=== PATIENT | female | born 1945 | race Caucasian/White ===

== ENCOUNTER 2018-08-17 12:24 | Inpatient (IN) | payer MEDICARE ==
[2018-08-17 13:24] LABS: Glucose,Whole Blood 342 mg/dL (75-99)
[2018-08-17] MEDS ORDERED: SODIUM CHLORIDE 0.9% 1,000 ML IV STA (13:38)
--- NOTE | 2018-08-17 13:42 | ED ---
General Adult HPI - General Chief complaint: Recheck/Abnormal Lab/Rx Stated complaint: high blood sugar Time Seen by Provider: 08/17/18 13:02 Source: patient, RN notes reviewed Mode of arrival: ambulatory Limitations: physical limitation - History of Present Illness Initial comments: Patient is a pleasant 72-year-old female presenting to the emergency Department with complaints of hyperglycemia. Patient does try to minimize her symptoms. Family is present who helps provide history. With this patient is agreeable that she has felt generally weak and fatigued. Patient is also agreeable that she has had increased thirst and increased urination. Unclear how long symptoms have been going on for however has been released several days. No chest pain or dyspnea. No confusion. No isolated area of weakness. - Related Data Home Medications Medication Instructions Recorded Confirmed Aspirin [[place] Aspirin EC] 81 mg PO DAILY 08/17/18 08/17/18 Atorvastatin [Lipitor] 40 mg PO DAILY 08/17/18 08/17/18 Donepezil [Aricept] 10 mg PO BID 08/17/18 08/17/18 Insulin Aspart [NovoLOG 10 unit SQ QID 08/17/18 08/17/18 (formulary)] Insulin Glargine,Hum.rec.anlog 20 unit SQ DAILY@1730 08/17/18 08/17/18 [Basaglar Kwikpen U-100] Losartan [Cozaar] 25 mg PO DAILY 08/17/18 08/17/18 Metoprolol Tartrate [Lopressor] 12.5 mg PO DAILY 08/17/18 08/17/18 Ticagrelor [Brilinta] 90 mg PO BID 08/17/18 08/17/18 Allergies Allergy/AdvReac Type Severity Reaction Status Date / Time No Known Allergies Allergy Verified 08/17/18 12:54 Review of Systems ROS Statement: Those systems with pertinent positive or pertinent negative responses have been documented in the HPI. ROS Other: All systems not noted in ROS Statement are negative. Constitutional: Denies: fever Eyes: Denies: eye pain ENT: Denies: ear pain Respiratory: Denies: cough, dyspnea Cardiovascular: Denies: chest pain Endocrine: Reports: fatigue, polydipsia, polyuria Gastrointestinal: Denies: abdominal pain, nausea, vomiting Genitourinary: Reports: frequency. Denies: dysuria Musculoskeletal: Denies: back pain Skin: Denies: rash Neurological: Reports: as per HPI. Denies: headache Past Medical History Past Medical History: Coronary Artery Disease (CAD), Diabetes Mellitus, Myocardial Infarction (NH) History of Any Multi-Drug Resistant Organisms: None Reported Past Surgical History: Heart Catheterization With Stent Past Psychological History: No Psychological Hx Reported Smoking Status: Never smoker Past Alcohol Use History: None Reported Past Drug Use History: None Reported General Exam Limitations: physical limitation General appearance: alert, in no apparent distress Head exam: Present: atraumatic Eye exam: Present: normal appearance, PERRL ENT exam: Present: normal oropharynx Neck exam: Present: normal inspection Respiratory exam: Present: normal lung sounds bilaterally Cardiovascular Exam: Present: regular rate, normal rhythm GI/Abdominal exam: Present: soft. Absent: tenderness Extremities exam: Present: normal inspection Neurological exam: Present: alert, CN II-XII intact. Absent: motor sensory deficit Psychiatric exam: Present: normal affect, normal mood Skin exam: Present: normal color Course Vital Signs 08/17/18 08/17/18 12:48 15:35 Temperature 98.1 F Pulse Rate 68 64 Respiratory 18 18 Rate Blood Pressure 112/56 123/45 O2 Sat by Pulse 99 97 Oximetry EKG Findings - EKG Comments: EKG Findings:: Sinus bradycardia 58. VA 180. QRS 90. QT 422. QTC 414. Left axis. LVH. Repolarization changes. No previous EKGs available. Medical Decision Making - Medical Decision Making Patient reevaluated and resting comfortably in bed. Patient and family updated on results and plan. Patient's primary care physician reportedly works with Dr. Baez. Dr. Mcmahon has been paged for admission. - Lab Data Result diagrams: 08/17/18 13:44 08/17/18 13:44 Lab Results 08/17/18 08/17/18 08/17/18 Range/Units 13:21 13:44 13:44 WBC (3.8-10.6) k/uL RBC (3.80-5.40) m/uL Hgb (11.4-16.0) gm/dL Hct (34.0-46.0) % MCV (80.0-100.0) fL MCH (25.0-35.0) pg MCHC (31.0-37.0) g/dL RDW (11.5-15.5) % Plt Count (150-450) k/uL Neutrophils % % Lymphocytes % % Monocytes % % Eosinophils % % Basophils % % Neutrophils # (1.3-7.7) k/uL Lymphocytes # (1.0-4.8) k/uL Monocytes # (0-1.0) k/uL Eosinophils # (0-0.7) k/uL Basophils # (0-0.2) k/uL Sodium 133 L (137-145) mmol/L Potassium 5.4 H (3.5-5.1) mmol/L Chloride 92 L (98-107) mmol/L Carbon Dioxide 21 L (22-30) mmol/L Anion Gap 20 mmol/L BUN 25 H (7-17) mg/dL Creatinine 0.88 (0.52-1.04) mg/dL Est GFR (CKD-EPI)AfAm 76 (>60 ml/min/1.73 sqM) Est GFR (CKD-EPI)NonAf 66 (>60 ml/min/1.73 sqM) Glucose 400 H (74-99) mg/dL POC Glucose (mg/dL) 342 H (75-99) mg/dL POC Glu Human Performance Professor ID Grady Shepard Calcium 9.6 (8.4-10.2) mg/dL Phosphorus 4.6 H (2.5-4.5) mg/dL Magnesium 2.0 (1.6-2.3) mg/dL Total Bilirubin 1.0 (0.2-1.3) mg/dL AST 32 (14-36) U/L ALT 44 (9-52) U/L Alkaline Phosphatase 85 (38-126) U/L Total Creatine Kinase 188 H (30-135) U/L CK-MB (CK-2) 3.0 H (0.0-2.4) ng/mL CK-MB (CK-2) Rel Index 1.6 Troponin I 0.013 (0.000-0.034) ng/mL Total Protein 7.5 (6.3-8.2) g/dL Albumin 4.5 (3.5-5.0) g/dL Urine Color Urine Appearance (Clear) Urine pH (5.0-8.0) Ur Specific [place] (1.001-1.035) Urine Protein (Negative) Urine Glucose (UA) (Negative) Urine Ketones (Negative) Urine Blood (Negative) Urine Nitrite (Negative) Urine Bilirubin (Negative) Urine Urobilinogen (<2.0) mg/dL Ur Leukocyte Esterase (Negative) Acetone, Qual Positive (Negative) 08/17/18 08/17/18 Range/Units 13:44 14:08 WBC 7.9 (3.8-10.6) k/uL RBC 4.53 (3.80-5.40) m/uL Hgb 13.5 (11.4-16.0) gm/dL Hct 42.0 (34.0-46.0) % MCV 92.6 (80.0-100.0) fL MCH 29.8 (25.0-35.0) pg MCHC 32.2 (31.0-37.0) g/dL RDW 13.6 (11.5-15.5) % Plt Count 222 (150-450) k/uL Neutrophils % 79 % Lymphocytes % 14 % Monocytes % 5 % Eosinophils % 0 % Basophils % 0 % Neutrophils # 6.2 (1.3-7.7) k/uL Lymphocytes # 1.1 (1.0-4.8) k/uL Monocytes # 0.4 (0-1.0) k/uL Eosinophils # 0.0 (0-0.7) k/uL Basophils # 0.0 (0-0.2) k/uL Sodium (137-145) mmol/L Potassium (3.5-5.1) mmol/L Chloride (98-107) mmol/L Carbon Dioxide (22-30) mmol/L Anion Gap mmol/L BUN (7-17) mg/dL Creatinine (0.52-1.04) mg/dL Est GFR (CKD-EPI)AfAm (>60 ml/min/1.73 sqM) Est GFR (CKD-EPI)NonAf (>60 ml/min/1.73 sqM) Glucose (74-99) mg/dL POC Glucose (mg/dL) (75-99) mg/dL POC Glu Human Performance Professor ID Calcium (8.4-10.2) mg/dL Phosphorus (2.5-4.5) mg/dL Magnesium (1.6-2.3) mg/dL Total Bilirubin (0.2-1.3) mg/dL AST (14-36) U/L ALT (9-52) U/L Alkaline Phosphatase (38-126) U/L Total Creatine Kinase (30-135) U/L CK-MB (CK-2) (0.0-2.4) ng/mL CK-MB (CK-2) Rel Index Troponin I (0.000-0.034) ng/mL Total Protein (6.3-8.2) g/dL Albumin (3.5-5.0) g/dL Urine Color Light Yellow Urine Appearance Clear (Clear) Urine pH 5.0 (5.0-8.0) Ur Specific [place] 1.026 (1.001-1.035) Urine Protein Negative (Negative) Urine Glucose (UA) 4+ H (Negative) Urine Ketones 4+ H (Negative) Urine Blood Negative (Negative) Urine Nitrite Negative (Negative) Urine Bilirubin Negative (Negative) Urine Urobilinogen <2.0 (<2.0) mg/dL Ur Leukocyte Esterase Negative (Negative) Acetone, Qual (Negative) - Radiology Data Radiology results: image reviewed (Chest x-ray shows chronic changes without acute abnormality.) Critical Care Time Critical Care Time: Yes Total Critical Care Time: 33 Disposition Clinical Impression: DKA (diabetic ketoacidoses) Disposition: ADMITTED IP TO THIS [facility] Condition: Serious Is patient prescribed a controlled substance at d/c from ED?: No Referrals: Amari Uriarte DO [Primary Care Provider] - 1-2 days Decision Time: 16:00
[2018-08-17 14:05] LABS: Basophils % (A) 0 %; Eosinophils % (A) 0 %; HGB 13.5 gm/dL (11.4-16.0); Lymphocytes # (A) 1.1 k/uL (1.0-4.8); Lymphocytes % (A) 14 %; MCH 29.8 pg (25.0-35.0); MCHC 32.2 g/dL (31.0-37.0); MCV 92.6 fL (80.0-100.0); Mean Platelet Volume 7.7; Monocytes # (A) 0.4 k/uL (0-1.0); Monocytes % (A) 5 %; Neutrophils # (A) 6.2 k/uL (1.3-7.7); Neutrophils % (A) 79 %; Platelet Count 222 k/uL (150-450); RBC 4.53 m/uL (3.80-5.40); RDW 13.6 % (11.5-15.5); WBC 7.9 k/uL (3.8-10.6)
[2018-08-17 14:17] LABS: ALT 44 U/L (9-52); AST 32 U/L (14-36); Albumin 4.5 g/dL (3.5-5.0); Alkaline Phosphatase 85 U/L (38-126); Anion Gap 20 mmol/L; Blood Urea Nitrogen 25 mg/dL (7-17); Calcium 9.6 mg/dL (8.4-10.2); Carbon Dioxide 21 mmol/L (22-30); Chloride 92 mmol/L (98-107); Glucose 400 mg/dL (74-99); Phosphorus 4.6 mg/dL (2.5-4.5); Potassium 5.4 mmol/L (3.5-5.1); Sodium 133 mmol/L (137-145); Total Protein 7.5 g/dL (6.3-8.2)
--- NOTE | 2018-08-17 14:26 | XR ---
EXAMINATION TYPE: XR chest 2V DATE OF EXAM: 08/17/2018 COMPARISON: NONE HISTORY: Weakness. TECHNIQUE: Frontal and lateral views of the chest are obtained. FINDINGS: There is chronic emphysematous change without suspicious focal air space opacity, pleural effusion, or pneumothorax seen. The cardiac silhouette size is within normal limits. Some multilevel spurring in the thoracic spine is present.. IMPRESSION: Chronic emphysematous change without acute pulmonary process.
[2018-08-17 14:28] LABS: Appearance,Urine Clear (Clear); Bilirubin,Urine Negative (Negative); Blood,Urine Negative (Negative); Color,Urine Light Yellow; Glucose,Urine (UA) 4+ (Negative); Leukocyte Esterase,Urine Negative (Negative); Nitrite,Urine Negative (Negative); Protein,Urine Negative (Negative); Specific Gravity,Urine 1.026 (1.001-1.035); Urobilinogen,Urine <2.0 mg/dL (<2.0)
[2018-08-17 14:38] LABS: Troponin I 0.013 ng/mL (0.000-0.034)
[2018-08-17 14:56] LABS: Ketones,Urine 4+ (Negative)
[2018-08-17] MEDS ORDERED: INSULIN REGULAR BOLUS (FROM DRIP BAG) IV ONE (16:00)
[2018-08-17 16:29] LABS: Glucose,Whole Blood 273 mg/dL (75-99)
[2018-08-17] MEDS ORDERED: INSULIN REGULAR 100 UNIT in SODIUM CHLORIDE 0.9% 100 ML IV SCH (16:30)
[2018-08-17] MEDS: SODIUM CHLORIDE 0.9% 1,000 ML IV SCH ×2 (18:01→21:54)
[2018-08-17 18:41] LABS: Glucose,Whole Blood 252 mg/dL (75-99)
[2018-08-17 19:50] LABS: Phosphorus 3.1 mg/dL (2.5-4.5); Potassium 4.5 mmol/L (3.5-5.1)
[2018-08-17] MEDS ORDERED: D5-0.45% NACL WITH KCL 20MEQ/L 1,000 ML IV SCH (20:00)
[2018-08-17 20:01] LABS: Glucose,Whole Blood 248 mg/dL (75-99)
[2018-08-17 21:02] LABS: Glucose,Whole Blood 244 mg/dL (75-99)
[2018-08-17] MEDS ORDERED: INSULIN DETEMIR 100 UNIT/ML 10 ML VIAL SQ SCH (21:31)
[2018-08-17] MEDS: TICAGRELOR 90 MG TAB PO SCH (21:52)
[2018-08-17] MEDS: ENOXAPARIN 40 MG/0.4 ML SYRINGE SQ SCH (21:52)
[2018-08-17] MEDS: DONEPEZIL 10 MG TAB PO SCH (21:52)
--- NOTE | 2018-08-17 22:04 | HP ---
HISTORY AND PHYSICAL DATE OF ADMISSION: 08/17/2018 DATE OF SERVICE: 08/17/2018 PRESENTING COMPLAINT: Weak and tired. HISTORY OF PRESENTING COMPLAINT: This is a very pleasant 72-year-old patient of Dr. Amari Uriarte. Patient's chronic stable medical conditions include coronary artery disease, Alzheimer's dementia. The patient was brought in by her daughter, as patient has been feeling weak, tired, somewhat more confused than usual, and sugars were found to be really high, up in 300s. Patient was found to have an elevated anion gap, positive for serum acetone; admitted for diabetic ketoacidosis. Patient was put on IV fluids, IV insulin drip, admitted for the same. The patient denies any respiratory symptoms. No cough, no shortness of breath, no urinary symptoms. No other evidence of infection. Patient admitted for the same. No chest pain. No shortness of breath. REVIEW OF SYSTEMS: CONSTITUTIONAL: Tired. HEENT: None. RESPIRATORY: None. CARDIOVASCULAR: None. GASTROINTESTINAL: None. GENITOURINARY: None. MUSCULOSKELETAL: None. DERMATOLOGICAL: None. HEMATOLOGICAL: None. LYMPHATICS: None. PSYCHIATRY: Forgetful. NEUROLOGICAL: None. PAST MEDICAL HISTORY: 1. Coronary artery disease with stent. 2. Diabetes. 3. Dementia. PAST SURGICAL HISTORY: Cardiac cath with stent. SOCIAL HISTORY: Does not smoke or drink alcohol. Lives by herself. Daughter helps her out. FAMILY HISTORY: Diabetes. HOME MEDICATIONS: 1. Aricept 10 mg b.i.d. 2. NovoLog 10 units subcutaneously q.i.d. 3. Insulin Basaglar 20 units subcutaneously daily. 4. Lipitor 40 mg p.o. daily. 5. Brilinta 90 mg p.o. b.i.d. 6. Lopressor 12.5 p.o. daily. 7. Cozaar 25 mg p.o. daily. 8. Aspirin 81 mg p.o. daily. ALLERGIES: NONE. PHYSICAL EXAMINATION: VITAL SIGNS ON PRESENTATION: Temperature 98.1, pulse 68, respiration 18, blood pressure 112/56, pulse ox 99% on room air. GENERAL APPEARANCE: Thin build. Sitting up, comfortable. EYES: Pupils equal. Conjunctivae normal. HEENT: External appearance of nose and ears normal. Oral cavity normal. NECK: JVD not raised. Mass not palpable. RESPIRATORY: Effort normal. LUNGS: Fair air entry. CARDIOVASCULAR: First and second sounds normal. No edema. ABDOMEN: Soft, non-tender. Liver and spleen not palpable. LYMPHATIC: No lymph node palpable in neck or axillae. PSYCHIATRY: Patient is able to answer simple questions. Forgetful about others. NEUROLOGICAL: Pupils equal. Cranial nerves grossly intact. Power and sensation grossly intact. INVESTIGATIONS: White count 7.9, hemoglobin 13.5, potassium 5.4, BUN 25, creatinine 0.88. Anion gap is 20. Blood glucose was 400. Urine was positive for ketone 4+ and glucose 4+. Serum acetone was positive. EKG tracing, personally reviewed by me, shows normal sinus rhythm. Chest x-ray film, personally reviewed by me, shows no obvious infiltrates. ASSESSMENT: 1. Acute diabetic ketoacidosis. No evidence of infection. 2. Acute delirium from acute diabetic ketoacidosis. 3. Moderate cognitive impairment, probably from Alzheimer's dementia. 4. Coronary artery disease with prior history of stent. 5. Hyperkalemia from acute ketoacidosis. PLAN: Patient was put on diabetic ketoacidosis protocol, including insulin and IV fluids, treated for the same. Lovenox for DVT prophylaxis. Care was discussed with the patient. No family is currently present. No evidence of infection. Follow electrolytes closely. MMODL / IJN: [id number] /
[2018-08-17 22:32] LABS: Glucose,Whole Blood 288 mg/dL (75-99)
[2018-08-17] MEDS: INSULIN ASPART 100 UNIT/ML 1 ML 10 ML VIAL SQ SCH (22:39)
[2018-08-18 00:42] LABS: Anion Gap 7 mmol/L; Blood Urea Nitrogen 23 mg/dL (7-17); Carbon Dioxide 25 mmol/L (22-30); Chloride 102 mmol/L (98-107); Glucose 293 mg/dL (74-99); Potassium 4.6 mmol/L (3.5-5.1); Sodium 134 mmol/L (137-145)
[2018-08-18 04:11] LABS: Hemoglobin A1C 13.4 % (4.0-6.0)
[2018-08-18 05:53] LABS: Glucose,Whole Blood 172 mg/dL (75-99)
[2018-08-18] MEDS: ENOXAPARIN 40 MG/0.4 ML SYRINGE SQ SCH (07:50)
[2018-08-18] MEDS: DONEPEZIL 10 MG TAB PO SCH (07:51)
[2018-08-18] MEDS: INSULIN ASPART 100 UNIT/ML 1 ML 10 ML VIAL SQ SCH ×5 (07:51→12:38)
[2018-08-18] MEDS: TICAGRELOR 90 MG TAB PO SCH (07:52)
[2018-08-18 08:14] VITALS: RESP 20
[2018-08-18] MEDS ORDERED: ATORVASTATIN 40 MG TAB PO SCH (09:00)
[2018-08-18] MEDS ORDERED: ASPIRIN 81 MG PO SCH (09:00)
[2018-08-18] MEDS ORDERED: METOPROLOL TARTRATE 12.5 MG TAB PO SCH (09:00)
[2018-08-18] MEDS ORDERED: LOSARTAN 25 MG TAB PO SCH (09:00)
[2018-08-18 11:25] LABS: Glucose,Whole Blood 143 mg/dL (75-99)
[2018-08-18 12:48] VITALS: BP 132/68; PULSE 71; TEMP 97.7
[2018-08-18 15:57] VITALS: BMI 19.3
[2018-08-18] MEDS ORDERED: INSULIN DETEMIR 100 UNIT/ML 10 ML VIAL SQ SCH (17:30)
--- NOTE | 2018-08-23 10:58 | DS ---
DISCHARGE SUMMARY DATE OF ADMISSION: 08/17/2018 DATE OF DISCHARGE: 08/18/2018 FINAL DIAGNOSES: 1. Acute diabetic ketoacidosis. No evidence of infection. 2. Acute delirium from acute diabetic ketoacidosis. 3. Moderate cognitive impairment probably from Alzheimer's dementia. 4. Coronary artery disease, prior history of stent. 5. Hyperkalemia from acute ketoacidosis. HOSPITAL COURSE: This patient presented with acute delirium from diabetic ketoacidosis. Also discovered to have significant cognitive impairment. Responded well to insulin drip. Sugars are doing much better at the time of discharge. The day of discharge discussion was held with the patient, her daughter and a friend. Patient will be definitely somewhat better with more supervision and there was some social haggling that was going on between whether she is going to be independent versus if somebody is going to move in and help her out. I did help to mediate the talk between the family with understanding to the patient that she definitely needs help and supervision and needs to be supervised closely. The friend, patient, and daughter are going to sort this out. Discussion and discharge planning more than 35 minutes. PHYSICAL EXAMINATION: Temperature 97.7, pulse 71, respiratory 20, blood pressure 132/68, pulse ox 98% on room air. LUNGS: Fair entry. CARDIOVASCULAR: First and second sounds are normal. Patient is able answer simple questions. INVESTIGATION: BUN 23, creatinine 0.75. DISCHARGE MEDICATIONS: 1. Aspirin 81 mg a day. 2. Lipitor 40 mg a day. 3. Aricept 10 mg b.i.d. 4. NovoLog 10 units subcu q.i.d. 5. Insulin Lantus 20 units subcu daily at 5:30 pm. 6. Cozaar 25 mg p.o. daily. 7. Lopressor 12.5 p.o. b.i.d. 8. Brilinta 90 mg p.o. b.i.d. FOLLOWUP: Follow up with Dr. Sagastume in 1 week. Follow up with Amari Uriarte on 08/21/2018. [facility] to follow. MMODL / IJN: [id number] /
== END 2018-08-18 16:23 | disposition home health service (06) | DRG 639 ==
LOC: EC 12:24 → 3SCARD 16:01
PROVIDERS: ADMIT Hospitalist; ATTEND Hospitalist
DX: E11.10 Type 2 diabetes mellitus with ketoacidosis without coma (principal); E87.5 Hyperkalemia; F02.80 Dementia in other diseases classified elsewhere, unspecified severity, without behavioral disturbance, psychotic disturbance, mood disturbance, and anxiety; G30.9 Alzheimer's disease, unspecified; I25.10 Atherosclerotic heart disease of native coronary artery without angina pectoris; I25.2 Old myocardial infarction; Z79.02 Long term (current) use of antithrombotics/antiplatelets; Z79.4 Long term (current) use of insulin; Z79.82 Long term (current) use of aspirin; Z83.3 Family history of diabetes mellitus; Z95.5 Presence of coronary angioplasty implant and graft; Z79.899 Other long term (current) drug therapy
CPT/HCPCS: 36415; 71046; 80051; 80053; 81003; 82009; 82550; 82553; 82565; 82947; 83036; 83735; 84100; 84484; 84520; 85025; 93005